=== PATIENT | male | born 1985 | race Caucasian/White ===

== ENCOUNTER 2018-07-08 03:04 | Emergency (ER) | payer SELFPAY ==
--- NOTE | 2018-07-08 03:11 | ER Report ---
History and Physical Time Seen By MD: 03:07 HPI/ROS CHIEF COMPLAINT: Longterm clearance HISTORY OF PRESENT ILLNESS: 33-year-old male found passed out in the hallway of the [facility]. Patient voices no complaints. He was brought in by EMS. He voices no complaints are no significant past medical history. Police are in attendance. He is a snf clearance. REVIEW OF SYSTEMS: Respiratory: No cough, no dyspnea. Cardiovascular: No chest pain, no palpitations. Gastrointestinal: No vomiting, no abdominal pain. Musculoskeletal: No back pain. Allergies: Coded Allergies: ibuprofen (Verified Allergy, Severe, "throat closes up", 07/08/18) Home Meds No Active Prescriptions or Reported Meds Reviewed Nurses Notes: Yes Old Medical Records Reviewed: Yes Constitutional Vital Sign - Last 24 Hours 07/08/18 03:07 Temp 97.6 Pulse 111 Resp 16 Pulse Ox 95 O2 Delivery Room Air Physical Exam General Appearance: The patient is alert, has no immediate need for airway protection and no current signs of toxicity. Palpation of the head and neck reveals no tenderness or trauma. Patient appears alcohol intoxicated with slurred speech and odor of EtOH on his breath HEENT: Pupils equal and round no injection. Facial bones intact, oropharynx without trauma Respiratory: Chest is non tender, lungs are clear to auscultation. No chest wall tenderness Cardiac: regular rate and rhythm Gastrointestinal: Abdomen is soft and non tender, no masses, bowel sounds normal. Musculoskeletal: Neck: Neck is supple and non tender. Extremities have full range of motion and are non tender. No evidence of trauma Skin: No rashes or lesions. DIFFERENTIAL DIAGNOSIS: After history and physical exam differential diagnosis was considered for snf clearance, alcohol intoxication, polysubstance abuse Medical Decision Making ED Course/Re-evaluation ED Course Patient was admitted to an examination room. H&P was done. The differential diagnoses was considered. Patient voices no complaints. He denies significant past medical history. His vital signs are stable. There are no conical findings on exam except for alcohol intoxication. Patient's medically cleared for snf admission. Decision to Disposition Date: Jul 08, 2018 Decision to Disposition Time: 03:10 Depart Departure Latest Vital Signs Vital Signs Date Time Temp Pulse Resp B/P (MAP) Pulse Ox O2 Delivery O2 Flow Rate FiO2 07/08/18 03:07 97.6 111 16 95 Room Air Impression: Primary Impression: Medical clearance for incarceration Additional Impression: Alcohol intoxication Condition: Improved Disposition: [facility] TO [facility]RECTIONAL F New Scripts No Active Prescriptions or Reported Meds Patient Instructions: Alcohol Intoxication (ED) Additional Instructions: Patient medically cleared for snf admission. Problem Qualifiers Additional Impression: Alcohol intoxication Complication of substance-induced condition: uncomplicated Qualified Codes: F10.920 - Alcohol use, unspecified with intoxication, uncomplicated LORAINE THOMPSON DO Jul 08, 2018 03:11
== END 2018-07-08 03:18 ==
LOC: ER 03:10
DX: F10.920 Alcohol use, unspecified with intoxication, uncomplicated (principal)
CPT/HCPCS: 99281

== ENCOUNTER → 2018-07-08 | Outpatient (CLI) | payer SELFPAY | LOC: AMB 02:43 | PROVIDERS: ATTEND Nurse Practitioner | DX: R41.82 Altered mental status, unspecified (principal); F10.121 Alcohol abuse with intoxication delirium | CPT/HCPCS: A0425; A0429 ==